=== PATIENT | female | born 1965 | race Caucasian/White ===

== ENCOUNTER 2017-04-29 02:34 | Emergency (ER) | payer OTHER ==
[~2017-04-29] VITALS: Ht 157.5 cm; Wt 118.3 kg
[2017-04-29] MEDS ORDERED: PERCOCET 5/31 TABLET PO (06:38)
[2017-04-29] MEDS ORDERED: MOTRIN800 MG PO (06:38)
[2017-04-29 06:58] VITALS: BP 162/105
== END 2017-04-29 07:00 | disposition home or self-care (01) ==
LOC: EME 02:34
PROC: 2W3DX1Z Immobilization of Left Lower Arm using Splint (ICD-10-PCS; principal; 2017-04-29)
DX: S52.592A Other fractures of lower end of left radius, initial encounter for closed fracture (principal); W00.0XXA Fall on same level due to ice and snow, initial encounter; F17.200 Nicotine dependence, unspecified, uncomplicated
CPT/HCPCS: 73110; 99281; 99284